=== PATIENT | female | born 1980 | race Asian ===

== ENCOUNTER 2017-03-27 10:45 | Emergency (ER) | payer OTHER ==
[~2017-03-27] VITALS: Ht 157.5 cm; Wt 63.6 kg
[2017-03-27] MEDS ORDERED: TYLENOL WITH C1 EACH PO (13:28)
[2017-03-27 14:00] VITALS: BP 105/74
== END 2017-03-27 14:00 | disposition home or self-care (01) ==
LOC: EME 10:45
DX: S20.219A Contusion of unspecified front wall of thorax, initial encounter (principal); S20.229A Contusion of unspecified back wall of thorax, initial encounter; M54.2 Cervicalgia; V44.5XXA Car driver injured in collision with heavy transport vehicle or bus in traffic accident, initial encounter; Y92.410 Unspecified street and highway as the place of occurrence of the external cause
CPT/HCPCS: 71020; 72040; 72070; 72100; 99281; 99284

== ENCOUNTER 2017-09-04 09:30 | Emergency (ER) | payer OTHER ==
[~2017-09-04] VITALS: Ht 157.5 cm; Wt 79.0 kg
[~2017-09-04 09:30] MED LIST: TYLENOL WITH C1 EACH PO
[2017-09-04] MEDS ORDERED: MOTRIN600 MG PO (10:01)
[2017-09-04] MEDS ORDERED: ROBAXIN750 MG PO (10:01)
[2017-09-04 10:55] VITALS: BP 136/88
== END 2017-09-04 10:56 | disposition home or self-care (01) ==
LOC: EME 09:30
DX: S39.012A Strain of muscle, fascia and tendon of lower back, initial encounter (principal); S46.911A Strain of unspecified muscle, fascia and tendon at shoulder and upper arm level, right arm, initial encounter; S20.311A Abrasion of right front wall of thorax, initial encounter; M54.2 Cervicalgia; V49.40XA Driver injured in collision with unspecified motor vehicles in traffic accident, initial encounter; Y92.410 Unspecified street and highway as the place of occurrence of the external cause
CPT/HCPCS: 99281; 99284